=== PATIENT | male | born 1950 | race African-American/Black ===

== ENCOUNTER 2017-08-19 05:37 | Inpatient (IN) | payer MEDICARE, OTHER ==
[~2017-08-19] VITALS: Ht 175.3 cm; Wt 104.3 kg
[2017-08-19] MEDS ORDERED: LORAZEPAM 2MG/ML CPJ IV STA (06:01)
[2017-08-19 06:25] LABS: BASOPHILS % 0.3 % (0.0-2.0); EOSINOPHILS % 0.1 % (0.0-5.0); HEMATOCRIT. 43.7 % (42.0-52.0); HEMOGLOBIN. 14.3 g/dL (14.0-18.0); LYMPHOCYTES % 12.9 % (20.0-50.0); MEAN CORPUSCULAR HEMOGLOBIN 28.7 pg (28.0-32.0); MEAN CORPUSCULAR VOLUME 87.6 fL (80.0-94.0); MEAN PLATELET VOLUME 7.7 fl (7.4-10.4); MONOCYTES % 10.3 % (2.0-8.0); NEUTROPHILS % 76.4 % (40.0-76.0); PLATELET 183 x1000/uL (130-400); RED BLOOD CELL COUNT 4.99 mill/uL (4.7-6.1); RED CELL DISTRIBUTION WIDTH 14.8 % (11.6-14.6)
[2017-08-19 06:37] LABS: INR 1.1
[2017-08-19 06:43] LABS: CHLORIDE 89 mEq/L (98-107); ETHANOL BLOOD < 10 mg/dL
[2017-08-19 06:45] LABS: AMMONIA < 25 uMol/L (<32)
[2017-08-19 06:56] LABS: TROPONIN I 0.05 ng/mL (0.00-0.04)
[2017-08-19] MEDS ORDERED: SODIUM CHLORIDE 0.9% 1000ML BAG (SEPSIS BOLUS) IV ONE (07:00)
[2017-08-19] MEDS ORDERED: VANCOMYCIN 1 G PREMIX 200 ML IV ONE (07:00)
[2017-08-19] MEDS ORDERED: PIPERACILLIN/TAZ 3.375G PREMIX 50 ML IV ONE (07:00)
[2017-08-19 08:28] LABS: CLARITY URINE CLEAR (CLEAR); COLOR URINE YELLOW (YELLOW); KETONES URINE TRACE (NEGATIVE); LEUKOCYTE ESTERASE URINE NEGATIVE (NEGATIVE); NITRITE URINE NEGATIVE (NEGATIVE); OCCULT BLOOD URINE NEGATIVE (NEGATIVE); PROTEIN URINE 3+ (NEGATIVE); SPECIFIC GRAVITY URINE 1.024 (1.005-1.030); UROBILINOGEN URINE 0.2 E.U./dL (0.2-1.0)
[2017-08-19 08:50] LABS: *AMPHETAMINES SCREEN URINE NEGATIVE (NEGATIVE); *BARBITURATES SCREEN URINE NEGATIVE (NEGATIVE); *BENZODIAZEPINES SCREEN URINE NEGATIVE (NEGATIVE); *COCAINE SCREEN URINE NEGATIVE (NEGATIVE); CANNABINOID URINE SCREEN NEGATIVE (NEGATIVE); METHADONE URINE SCREEN NEGATIVE (NEGATIVE); OPIATES URINE SCREEN NEGATIVE (NEGATIVE); PHENCYCLIDINE URINE SCREEN NEGATIVE (NEGATIVE)
[2017-08-19] MEDS ORDERED: INSULIN LISPRO(HUMALOG)300 UNIT/3ML VIAL SUBCUT NR (12:00)
[2017-08-19] MEDS ORDERED: LORAZEPAM 2MG/ML CPJ IV NR (14:00)
[2017-08-19 17:39] VITALS: BP 162/88
[2017-08-19] MEDS ORDERED: MAGNESIUM HYDROXIDE 400MG/5ML 30ML UDC PO PRN (17:45)
[2017-08-19] MEDS ORDERED: DEXTROSE 50% WATER 50ML SYRINGE IV PRN (17:45)
[2017-08-19] MEDS ORDERED: LORAZEPAM 2MG/ML CPJ IV PRN (17:45)
[2017-08-19 18:00] VITALS: BP 162/88
[2017-08-19] MEDS ORDERED: NON FORMULARY PATIENT HOME MED EA PO SCH (18:00)
[2017-08-19] MEDS ORDERED: NON FORMULARY PATIENT HOME MED EA XX SCH ×2 (18:00)
[2017-08-19] MEDS ORDERED: PREGABALIN 50 MG CAPSULE PO SCH (18:30)
[2017-08-19] MEDS: CARBAMAZEPINE 200MG TABLET PO SCH (19:17)
[2017-08-19] MEDS: LOSARTAN POTASSIUM 100 MG TABLET PO SCH (19:19)
[2017-08-19] MEDS: INSULIN LISPRO (LOW DOSE) 100 UNITS/ML SUBCUT SCH ×2 (19:21→21:43)
[2017-08-19 20:00] VITALS: BP 143/71
[2017-08-19] MEDS ORDERED: PREGABALIN 25MG CAPSULE PO SCH (20:00)
[2017-08-19] MEDS ORDERED: MORPHINE SULFATE 30MG TABLET SR PO NR (20:00)
[2017-08-19] MEDS ORDERED: NALO25TA PO (20:28)
[2017-08-19] MEDS ORDERED: NABU-90 PO (20:28)
[2017-08-19] MEDS ORDERED: CLON0.1T PO (20:28)
[2017-08-19] MEDS ORDERED: GABA-290 PO (20:28)
[2017-08-19] MEDS ORDERED: CELE200C PO (20:28)
[2017-08-19] MEDS ORDERED: HYDR-4005 PO (20:28)
[2017-08-19] MEDS ORDERED: MORP30TA66 PO (20:28)
[2017-08-19] MEDS ORDERED: HYDR30TA PO (20:28)
[2017-08-19] MEDS ORDERED: PREG50CA PO (20:28)
[2017-08-19] MEDS ORDERED: TRAM50TA3 PO (20:28)
[2017-08-19] MEDS: INSULIN LISPRO 100 UNITS/ML SUBCUT SCH (21:00)
[2017-08-19] MEDS: LEVOFLOXACIN 500MG PREMIX 100 ML IV SCH (21:38)
[2017-08-19] MEDS: CLONIDINE 0.1MG TABLET PO SCH (21:41)
[2017-08-19] MEDS: BLOOD SUGAR DIAGNOSTIC STRIP TEST SCH (21:41)
[2017-08-19] MEDS: ENOXAPARIN 30MG/0.3ML SYR SUBCUT SCH (21:42)
[2017-08-20] VITALS: BP 169/82
[2017-08-20 04:00] VITALS: BP 134/67
[2017-08-20] MEDS: BLOOD SUGAR DIAGNOSTIC STRIP TEST SCH ×4 (06:40→21:45)
[2017-08-20 06:59] LABS: BASOPHILS % 0.5 % (0.0-2.0); EOSINOPHILS % 2.9 % (0.0-5.0); HEMATOCRIT. 38.1 % (42.0-52.0); HEMOGLOBIN. 12.6 g/dL (14.0-18.0); LYMPHOCYTES % 19.7 % (20.0-50.0); MEAN CORPUSCULAR HEMOGLOBIN 28.5 pg (28.0-32.0); MEAN CORPUSCULAR VOLUME 86.1 fL (80.0-94.0); MEAN PLATELET VOLUME 7.9 fl (7.4-10.4); MONOCYTES % 12.7 % (2.0-8.0); NEUTROPHILS % 64.2 % (40.0-76.0); PLATELET 154 x1000/uL (130-400); RED BLOOD CELL COUNT 4.43 mill/uL (4.7-6.1); RED CELL DISTRIBUTION WIDTH 14.6 % (11.6-14.6)
[2017-08-20 07:24] LABS: CHLORIDE 100 mEq/L (98-107)
[2017-08-20] MEDS: INSULIN LISPRO 100 UNITS/ML SUBCUT SCH (07:49)
[2017-08-20 08:07] VITALS: BP 144/70
[2017-08-20] MEDS: TIZANIDINE HCL 4MG TABLET PO SCH ×2 (09:00→09:40)
[2017-08-20] MEDS: CARBAMAZEPINE 200MG TABLET PO SCH ×2 (09:39→19:50)
[2017-08-20] MEDS: LOSARTAN POTASSIUM 100 MG TABLET PO SCH (09:40)
[2017-08-20] MEDS: CELECOXIB 200MG CAPSULE PO SCH (09:40)
[2017-08-20] MEDS: COLCHICINE 0.6MG TABLET PO SCH (09:40)
[2017-08-20] MEDS: ENOXAPARIN 30MG/0.3ML SYR SUBCUT SCH ×2 (09:40→20:44)
[2017-08-20] MEDS: INSULIN LISPRO (LOW DOSE) 100 UNITS/ML SUBCUT SCH ×4 (09:42→22:17)
[2017-08-20 11:43] VITALS: BP 131/76
[2017-08-20] MEDS ORDERED: CLON0.5T4 PO (13:12)
[2017-08-20] MEDS ORDERED: CARB300C6 PO (13:12)
[2017-08-20] MEDS ORDERED: ZET10 PO (13:12)
[2017-08-20] MEDS ORDERED: DIPH25CA83 PO (13:12)
[2017-08-20] MEDS ORDERED: ASPI-1159 PO (13:12)
[2017-08-20] MEDS ORDERED: PSEU60TA23 PO (13:12)
[2017-08-20] MEDS: GABAPENTIN 400MG CAPSULE PO SCH ×2 (13:47→20:43)
[2017-08-20 14:20] LABS: TROPONIN I 0.03 ng/mL (0.00-0.04)
[2017-08-20 15:46] VITALS: BP 146/92
[2017-08-20 20:00] VITALS: BP 151/84
[2017-08-20] MEDS: CLONIDINE 0.1MG TABLET PO SCH (20:43)
[2017-08-20] MEDS: LEVOFLOXACIN 500MG PREMIX 100 ML IV SCH (20:43)
[2017-08-20] MEDS: CLONIDINE 0.1MG TABLET PO PRN (23:53)
[2017-08-21] VITALS: BP 174/92
[2017-08-21 04:00] VITALS: BP 173/93
[2017-08-21] MEDS: GABAPENTIN 400MG CAPSULE PO SCH ×3 (05:23→21:24)
[2017-08-21] MEDS: CLONIDINE 0.1MG TABLET PO PRN (05:23)
[2017-08-21] MEDS: BLOOD SUGAR DIAGNOSTIC STRIP TEST SCH ×4 (06:40→21:22)
[2017-08-21 07:58] LABS: CHLORIDE 97 mEq/L (98-107)
[2017-08-21] MEDS: LOSARTAN POTASSIUM 100 MG TABLET PO SCH (09:11)
[2017-08-21] MEDS: COLCHICINE 0.6MG TABLET PO SCH (09:11)
[2017-08-21] MEDS: ENOXAPARIN 30MG/0.3ML SYR SUBCUT SCH ×2 (09:11→21:24)
[2017-08-21] MEDS: CARBAMAZEPINE 200MG TABLET PO SCH ×2 (09:11→18:28)
[2017-08-21] MEDS: TIZANIDINE HCL 4MG TABLET PO SCH (09:11)
[2017-08-21] MEDS: CELECOXIB 200MG CAPSULE PO SCH (09:11)
[2017-08-21] MEDS: INSULIN LISPRO 100 UNITS/ML SUBCUT SCH ×4 (09:12→22:01)
[2017-08-21 12:00] VITALS: BP 124/63
[2017-08-21 16:00] VITALS: BP 156/81
[2017-08-21 20:00] VITALS: BP 127/97
[2017-08-21] MEDS: LEVOFLOXACIN 500MG PREMIX 100 ML IV SCH (21:22)
[2017-08-21] MEDS: CLONIDINE 0.1MG TABLET PO SCH (21:23)
[2017-08-21] MEDS: LORAZEPAM 1MG TABLET PO PRN (21:24)
[2017-08-22] VITALS: BP 130/57
[2017-08-22 04:00] VITALS: BP 140/64
[2017-08-22] MEDS: GABAPENTIN 400MG CAPSULE PO SCH ×3 (06:37→22:04)
[2017-08-22] MEDS: BLOOD SUGAR DIAGNOSTIC STRIP TEST SCH ×4 (06:37→21:00)
[2017-08-22 08:15] VITALS: BP 163/90
[2017-08-22] MEDS: CELECOXIB 200MG CAPSULE PO SCH (08:49)
[2017-08-22] MEDS: LOSARTAN POTASSIUM 100 MG TABLET PO SCH (08:50)
[2017-08-22] MEDS: COLCHICINE 0.6MG TABLET PO SCH (08:50)
[2017-08-22] MEDS: CARBAMAZEPINE 200MG TABLET PO SCH ×2 (08:50→17:49)
[2017-08-22] MEDS: ENOXAPARIN 30MG/0.3ML SYR SUBCUT SCH ×2 (08:50→22:04)
[2017-08-22] MEDS: TIZANIDINE HCL 4MG TABLET PO SCH (08:50)
[2017-08-22] MEDS: CLONIDINE 0.1MG TABLET PO PRN (08:50)
[2017-08-22] MEDS: INSULIN LISPRO 100 UNITS/ML SUBCUT SCH ×4 (08:59→22:29)
[2017-08-22 12:20] VITALS: BP 143/75
[2017-08-22] MEDS: LORAZEPAM 1MG TABLET PO PRN ×2 (13:24→22:04)
[2017-08-22 17:11] VITALS: BP 159/85
[2017-08-22 20:00] VITALS: BP 167/82
[2017-08-22] MEDS: LEVOFLOXACIN 250MG TABLET PO SCH (22:03)
[2017-08-22] MEDS: CLONIDINE 0.1MG TABLET PO SCH (22:03)
[2017-08-23] VITALS: BP 126/73
[2017-08-23 04:00] VITALS: BP 171/83
[2017-08-23] MEDS: BLOOD SUGAR DIAGNOSTIC STRIP TEST SCH ×4 (05:49→21:36)
[2017-08-23] MEDS: GABAPENTIN 400MG CAPSULE PO SCH ×3 (05:51→21:35)
[2017-08-23] MEDS: CLONIDINE 0.1MG TABLET PO PRN ×2 (05:52→17:03)
[2017-08-23 08:00] VITALS: BP 141/82
[2017-08-23] MEDS ORDERED: TIZANIDINE HCL 4MG TABLET PO SCH ×2 (09:00→21:00)
[2017-08-23] MEDS: ENOXAPARIN 30MG/0.3ML SYR SUBCUT SCH ×2 (09:06→21:36)
[2017-08-23] MEDS: LOSARTAN POTASSIUM 100 MG TABLET PO SCH (09:07)
[2017-08-23] MEDS: COLCHICINE 0.6MG TABLET PO SCH (09:07)
[2017-08-23] MEDS: INSULIN LISPRO 100 UNITS/ML SUBCUT SCH ×4 (09:07→21:45)
[2017-08-23] MEDS: CELECOXIB 200MG CAPSULE PO SCH (09:07)
[2017-08-23] MEDS: TIZANIDINE HCL 4MG TABLET PO SCH ×2 (09:07→17:03)
[2017-08-23] MEDS: LORAZEPAM 1MG TABLET PO PRN ×2 (09:07→21:35)
[2017-08-23] MEDS: CARBAMAZEPINE 200MG TABLET PO SCH ×2 (09:07→17:03)
[2017-08-23 12:00] VITALS: BP 144/80
[2017-08-23 16:00] VITALS: BP 164/93
[2017-08-23 20:24] VITALS: BP 158/90
[2017-08-23] MEDS: LEVOFLOXACIN 250MG TABLET PO SCH (21:35)
[2017-08-23] MEDS: CLONIDINE 0.1MG TABLET PO SCH (21:36)
[2017-08-24] VITALS (7 sets, daily range): BP systolic 144–168; BP diastolic 69–91
[2017-08-24] MEDS: BLOOD SUGAR DIAGNOSTIC STRIP TEST SCH ×3 (05:37→17:26)
[2017-08-24] MEDS: GABAPENTIN 400MG CAPSULE PO SCH ×2 (05:37→17:26)
[2017-08-24] MEDS: LOSARTAN POTASSIUM 100 MG TABLET PO SCH (08:48)
[2017-08-24] MEDS: CARBAMAZEPINE 200MG TABLET PO SCH ×2 (08:48→17:26)
[2017-08-24] MEDS: COLCHICINE 0.6MG TABLET PO SCH (08:48)
[2017-08-24] MEDS: CELECOXIB 200MG CAPSULE PO SCH (08:49)
[2017-08-24] MEDS: ENOXAPARIN 30MG/0.3ML SYR SUBCUT SCH (08:49)
[2017-08-24] MEDS: INSULIN LISPRO 100 UNITS/ML SUBCUT SCH ×3 (08:55→18:19)
[2017-08-24] MEDS ORDERED: TIZANIDINE HCL 4MG TABLET PO SCH (09:00)
[2017-08-24] MEDS: LORAZEPAM 1MG TABLET PO PRN (17:35)
== END 2017-08-24 20:40 | disposition home or self-care (01) | DRG 871 ==
LOC: ER 05:37 → 7WST 07:26 → ENRESERV 09:25 → CANRESERV 09:25 → ENRESERV 11:20
PROVIDERS: ADMIT Specialist; ATTEND Specialist
DX: A41.9 Sepsis, unspecified organism (principal); J18.9 Pneumonia, unspecified organism; N17.9 Acute kidney failure, unspecified; E11.22 Type 2 diabetes mellitus with diabetic chronic kidney disease; E11.65 Type 2 diabetes mellitus with hyperglycemia; F11.20 Opioid dependence, uncomplicated; E87.1 Hypo-osmolality and hyponatremia; E78.00 Pure hypercholesterolemia, unspecified; G40.909 Epilepsy, unspecified, not intractable, without status epilepticus; G89.4 Chronic pain syndrome; I12.9 Hypertensive chronic kidney disease with stage 1 through stage 4 chronic kidney disease, or unspecified chronic kidney disease; Z96.41 Presence of insulin pump (external) (internal); F41.9 Anxiety disorder, unspecified; M54.5 Low back pain; N18.9 Chronic kidney disease, unspecified; Z95.0 Presence of cardiac pacemaker; Z79.4 Long term (current) use of insulin; Z87.891 Personal history of nicotine dependence; Z79.899 Other long term (current) drug therapy
CPT/HCPCS: 36415; 70450; 71045; 71047; 80048; 80053; 80061; 80305; 80307; 80329; 81003; 82140; 82962; 83036; 83605; 83880; 84443; 84484; 85025; 85610; 87040; 87070; 87086; 87116; 93005; 96365; 96367; 96372; 96375; 96376; 99291; G0482; J1650; J1815; J1956; J2060; J2543; J3370; J7030; J7050

== ENCOUNTER 2017-12-10 10:57 | Emergency (ER) | payer OTHER, MEDICARE ==
[~2017-12-10] VITALS: Ht 175.3 cm; Wt 90.0 kg
[~2017-12-10 10:57] MED LIST: ALBUTEROL 90 MG INH; ASPI-1159 PO; CELE200C PO; CLON0.1T PO; CLON0.5T12 PO; CYAN10009 IM; DIPH25CA83 PO; ESOM40CA MT; FLUT15.88 BOTHNSTRLS; GABA-290 PO; HYDR30TA PO; LOSA100T14 MT; NALO25TA PO; PSEU60TA23 PO; ZET10 PO
[2017-12-10] MEDS ORDERED: SODIUM CHLORIDE 0.9% 1,000 ML IV ONE (12:00)
[2017-12-10 12:03] LABS: BASOPHILS % 0.4 % (0.0-2.0); EOSINOPHILS % 1.4 % (0.0-5.0); HEMATOCRIT. 25.2 % (42.0-52.0); HEMOGLOBIN. 8.4 g/dL (14.0-18.0); LYMPHOCYTES % 11.9 % (20.0-50.0); MEAN CORPUSCULAR HEMOGLOBIN 29.2 pg (28.0-32.0); MEAN CORPUSCULAR VOLUME 87.2 fL (80.0-94.0); MEAN PLATELET VOLUME 7.2 fl (7.4-10.4); MONOCYTES % 8.4 % (2.0-8.0); NEUTROPHILS % 77.9 % (40.0-76.0); PLATELET 228 x1000/uL (130-400); RED BLOOD CELL COUNT 2.88 mill/uL (4.7-6.1); RED CELL DISTRIBUTION WIDTH 15.2 % (11.6-14.6)
[2017-12-10 12:08] LABS: CHLORIDE 100 mEq/L (98-107)
[2017-12-10 13:03] LABS: AMMONIA 21 uMol/L (<32)
[2017-12-10 14:59] LABS: CLARITY URINE CLOUDY (CLEAR); COLOR URINE RED (YELLOW); KETONES URINE TRACE (NEGATIVE); LEUKOCYTE ESTERASE URINE 1+ (NEGATIVE); NITRITE URINE NEGATIVE (NEGATIVE); OCCULT BLOOD URINE 3+ (NEGATIVE); PROTEIN URINE 2+ (NEGATIVE); SPECIFIC GRAVITY URINE 1.009 (1.005-1.030)
[2017-12-10 15:16] LABS: CANNABINOID URINE SCREEN NEGATIVE (NEGATIVE)
[2017-12-10 15:17] LABS: *BARBITURATES SCREEN URINE NEGATIVE (NEGATIVE); *COCAINE SCREEN URINE NEGATIVE (NEGATIVE); METHADONE URINE SCREEN NEGATIVE (NEGATIVE); OPIATES URINE SCREEN PRESUMTIVE POSITIVE (NEGATIVE); PHENCYCLIDINE URINE SCREEN NEGATIVE (NEGATIVE)
[2017-12-10 15:18] LABS: *AMPHETAMINES SCREEN URINE NEGATIVE (NEGATIVE); *BENZODIAZEPINES SCREEN URINE NEGATIVE (NEGATIVE)
[2017-12-10] MEDS ORDERED: LORAZEPAM 2MG/ML CPJ IV ONE (16:45)
[2017-12-10 19:19] VITALS: BP 149/74
== END 2017-12-10 19:50 | disposition home or self-care (01) ==
LOC: ER 11:18 → CANRESERV 19:42 → ENRESERV 19:42 → ER 19:50 → CANBEDREQ 19:51
DX: N17.9 Acute kidney failure, unspecified (principal); E86.0 Dehydration; R55 Syncope and collapse; R53.1 Weakness; R11.0 Nausea; R00.0 Tachycardia, unspecified; E11.9 Type 2 diabetes mellitus without complications; I10 Essential (primary) hypertension; E78.00 Pure hypercholesterolemia, unspecified
CPT/HCPCS: 36415; 71045; 80053; 80305; 81003; 82140; 83605; 83880; 84484; 85025; 87040; 93005; 96361; 96374; 99285; J2060; J7030; Z7610; A4315

== ENCOUNTER 2017-12-24 10:32 | Inpatient (IN) | payer OTHER, MEDICARE ==
[~2017-12-24] VITALS: Ht 175.3 cm; Wt 93.2 kg
[~2017-12-24 10:32] MED LIST changes: -ESOM40CA MT; +ESOM40CA PO; -LOSA100T14 MT; +LOSA100T14 PO
[2017-12-24] MEDS ORDERED: SODIUM CHLORIDE 0.9% 1,000 ML IV ONE (10:49)
[2017-12-24 11:10] LABS: BG BASE EXCESS -6.5 mmol/L (-2.0-2.0); BG CARBOXYHEMOGLOBIN 0.5 % (0.5-1.5); BG DEOXYHEMOGLOBIN 3.7 % (0.0-5.0); BG HCO3 ACT 17.3 mmol/L (22.0-26.0); BG METHEMOGLOBIN 0.4 % (0.0-1.5); BG OXYGEN SATURATION 96.3 % (92.0-98.5); BG OXYHEMOGLOBIN 95.4 % (94.0-97.0); BG PCO2 27.5 mmHg (35.0-45.0); BG PH 7.416 (7.350-7.450); BG PO2 90.9 mmHg (75.0-100.0); BG SAMPLE SITE RIGHT RADIAL; BG TOTAL HEMOGLOBIN 7.1 g/dL (12.0-18.0); BG VENT MODE ROOM AIR; HEMOGLOBIN. 7.1 g/dL (14.0-18.0); MEAN CORPUSCULAR HEMOGLOBIN 28.7 pg (28.0-32.0); MEAN CORPUSCULAR VOLUME 88.6 fL (80.0-94.0); MEAN PLATELET VOLUME 8.5 fl (7.4-10.4); PLATELET 153 x1000/uL (130-400); RED BLOOD CELL COUNT 2.48 mill/uL (4.7-6.1); RED CELL DISTRIBUTION WIDTH 17.3 % (11.6-14.6)
[2017-12-24 11:17] LABS: CHLORIDE 93 mEq/L (98-107); INR 1.1; PROTHROMBIN TIME 10.9 sec (9.4-11.6)
[2017-12-24 11:25] LABS: ETHANOL BLOOD < 10 mg/dL
[2017-12-24 11:26] LABS: CREATINE KINASE 339 IU/L (39-308)
[2017-12-24 11:28] LABS: BETA HYDROXYBUTYRATE 0.1 mMol/L (0.0-0.3)
[2017-12-24 11:29] LABS: AMMONIA 23 uMol/L (<32)
[2017-12-24 11:30] LABS: CARBAMAZEPINE < 0.5 ug/mL (4-12); PHENOBARBITAL < 2.1 ug/mL (15.0-40.0); VALPROIC ACID < 3.0 ug/mL (50-100)
[2017-12-24 11:52] LABS: PLATELET ESTIMATE NORMAL
[2017-12-24] MEDS ORDERED: PIPERACILLIN/TAZ 3.375G PREMIX 50 ML IV ONE (12:30)
[2017-12-24] MEDS ORDERED: INSULIN REGULAR (HUMULIN R) 300UNITS/3ML SUBCUT ONE (12:30)
[2017-12-24 13:03] LABS: CLARITY URINE CLOUDY (CLEAR); COLOR URINE DARK YELLOW (YELLOW); KETONES URINE NEGATIVE (NEGATIVE); LEUKOCYTE ESTERASE URINE 2+ (NEGATIVE); NITRITE URINE NEGATIVE (NEGATIVE); OCCULT BLOOD URINE 2+ (NEGATIVE); PROTEIN URINE 2+ (NEGATIVE); SPECIFIC GRAVITY URINE 1.011 (1.005-1.030); UROBILINOGEN URINE 0.2 E.U./dL (0.2-1.0)
[2017-12-24 13:33] LABS: *AMPHETAMINES SCREEN URINE NEGATIVE (NEGATIVE); *BARBITURATES SCREEN URINE NEGATIVE (NEGATIVE)
[2017-12-24 13:34] LABS: *BENZODIAZEPINES SCREEN URINE NEGATIVE (NEGATIVE); *COCAINE SCREEN URINE NEGATIVE (NEGATIVE); CANNABINOID URINE SCREEN NEGATIVE (NEGATIVE); METHADONE URINE SCREEN NEGATIVE (NEGATIVE); OPIATES URINE SCREEN NEGATIVE (NEGATIVE); PHENCYCLIDINE URINE SCREEN NEGATIVE (NEGATIVE)
[2017-12-24 16:00] VITALS: BP 138/69
[2017-12-24] MEDS ORDERED: ONDANSETRON 4MG ODT PO PRN (17:15)
[2017-12-24] MEDS ORDERED: ALBUTEROL (0.083%) 2.5MG/3ML NEB INH PRN (17:15)
[2017-12-24 17:38] VITALS: BP 138/69
[2017-12-24] MEDS ORDERED: ACETAMINOPHEN 325MG TABLET PO PRN (18:15)
[2017-12-24 20:00] VITALS: BP 122/62
[2017-12-24] MEDS: OXYCODONE HCL 20MG TABLET SR 12HR PO SCH (20:12)
[2017-12-24] MEDS: FLUTICASONE PROPIONATE 50MCG/SPRAY BOTTLE BOTHNSTRLS SCH (20:13)
[2017-12-24] MEDS: CLONAZEPAM 0.5MG TABLET PO SCH (20:13)
[2017-12-24] MEDS: LAMOTRIGINE 100MG TABLET PO SCH (20:13)
[2017-12-24] MEDS: SODIUM CHLORIDE 0.9% 1,000 ML IV SCH (20:16)
[2017-12-24] MEDS: LEVOFLOXACIN 500MG PREMIX 100 ML IV SCH (20:17)
[2017-12-24 20:20] LABS: TOTAL IRON BINDING CAPACITY 270 ug/dL (250-450)
[2017-12-24 20:28] LABS: T4 FREE 1.08 ng/dL (0.76-1.46)
[2017-12-24] MEDS ORDERED: DEXTROSE 50% WATER 50ML SYRINGE IV PRN (20:45)
[2017-12-24 20:48] LABS: FOLIC ACID (FOLATE) SERUM 8.7 ng/mL (>5.38)
[2017-12-24] MEDS ORDERED: INSULIN LISPRO 100 UNITS/ML SUBCUT SCH (21:00)
[2017-12-24] MEDS: BLOOD SUGAR DIAGNOSTIC STRIP TEST SCH (21:23)
[2017-12-24] MEDS ORDERED: GABAPENTIN 300MG CAPSULE PO SCH (22:15)
[2017-12-24] MEDS: INSULIN LISPRO 100 UNITS/ML SUBCUT SCH (22:23)
[2017-12-24] MEDS: DEMECLOCYCLINE HCL 300MG TABLET PO SCH (22:24)
[2017-12-24] MEDS: TIZANIDINE HCL 4MG TABLET PO SCH (22:43)
[2017-12-24] MEDS: GABAPENTIN 400MG CAPSULE PO SCH (22:44)
[2017-12-25] VITALS (7 sets, daily range): BP systolic 98–138; BP diastolic 54–76
[2017-12-25] MEDS: OXYCODONE HCL 5MG TABLET PO PRN ×2 (00:19→12:46)
[2017-12-25] MEDS ORDERED: EPOETIN ALFA 10000UNITS/ML VIAL SUBCUT NR (05:00)
[2017-12-25] MEDS: IRON SUCROSE COMPLEX 100 MG/5 ML ML IV SCH (05:14)
[2017-12-25] MEDS: DEMECLOCYCLINE HCL 300MG TABLET PO SCH ×3 (05:14→22:04)
[2017-12-25] MEDS: GABAPENTIN 400MG CAPSULE PO SCH ×3 (05:14→22:10)
[2017-12-25] MEDS: BLOOD SUGAR DIAGNOSTIC STRIP TEST SCH ×4 (05:48→21:00)
[2017-12-25 06:04] LABS: BASOPHILS % 0.5 % (0.0-2.0); EOSINOPHILS % 1.4 % (0.0-5.0); LYMPHOCYTES % 8.4 % (20.0-50.0); MEAN CORPUSCULAR VOLUME 87.3 fL (80.0-94.0); MEAN PLATELET VOLUME 8.1 fl (7.4-10.4); MONOCYTES % 11.3 % (2.0-8.0); NEUTROPHILS % 78.4 % (40.0-76.0); PLATELET 112 x1000/uL (130-400); RED CELL DISTRIBUTION WIDTH 16.8 % (11.6-14.6)
[2017-12-25 06:24] LABS: CHLORIDE 94 mEq/L (98-107)
[2017-12-25 06:28] LABS: PHOSPHORUS 2.3 mg/dL (2.5-4.9)
[2017-12-25 06:37] LABS: HEMATOCRIT. 17.5 % (42.0-52.0); HEMOGLOBIN. 5.8 g/dL (14.0-18.0)
[2017-12-25 06:38] LABS: TOTAL IRON BINDING CAPACITY 214 ug/dL (250-450)
[2017-12-25 06:39] LABS: LDL CHOLESTEROL 51 mg/dL (5-100); PHOSPHORUS 2.3 mg/dL (2.5-4.9)
[2017-12-25 06:42] LABS: HDL CHOLESTEROL 42 mg/dL (40-59)
[2017-12-25 06:52] LABS: VITAMIN B12 SERUM 699 pg/mL (211-911)
[2017-12-25] MEDS: SODIUM CHLORIDE 0.9% 1,000 ML IV SCH ×2 (07:20→22:10)
[2017-12-25] MEDS: PANTOPRAZOLE SODIUM 40 MG/VIAL IV SCH (08:30)
[2017-12-25] MEDS: LAMOTRIGINE 100MG TABLET PO SCH ×2 (08:31→22:04)
[2017-12-25] MEDS: EZETIMIBE 10MG TABLET PO SCH (08:31)
[2017-12-25] MEDS: OXYCODONE HCL 20MG TABLET SR 12HR PO SCH ×2 (08:31→22:05)
[2017-12-25] MEDS: INSULIN LISPRO 100 UNITS/ML SUBCUT SCH ×6 (08:32→21:00)
[2017-12-25] MEDS ORDERED: LEVOFLOXACIN 500MG PREMIX 100 ML IV SCH (12:45)
[2017-12-25] MEDS ORDERED: SODIUM PHOS,M-BASIC-D-BASIC 20 MM in DEXT 5% WATER 243.3333 ML IV SCH (14:00)
[2017-12-25] MEDS: FLUTICASONE PROPIONATE 50MCG/SPRAY BOTTLE BOTHNSTRLS SCH (21:00)
[2017-12-25] MEDS: CLONAZEPAM 0.5MG TABLET PO SCH (22:04)
[2017-12-25] MEDS: TIZANIDINE HCL 4MG TABLET PO SCH (22:06)
[2017-12-26] VITALS: BP 133/71
[2017-12-26 00:45] LABS: CLARITY URINE CLEAR (CLEAR); COLOR URINE YELLOW (YELLOW); KETONES URINE NEGATIVE (NEGATIVE); LEUKOCYTE ESTERASE URINE NEGATIVE (NEGATIVE); NITRITE URINE NEGATIVE (NEGATIVE); OCCULT BLOOD URINE 1+ (NEGATIVE); PROTEIN URINE 1+ (NEGATIVE); SPECIFIC GRAVITY URINE 1.006 (1.005-1.030); UROBILINOGEN URINE 0.2 E.U./dL (0.2-1.0)
[2017-12-26 04:00] VITALS: BP 134/68
[2017-12-26] MEDS: DIPHENHYDRAMINE 25MG CAPSULE PO PRN ×3 (04:50→21:45)
[2017-12-26] MEDS: IRON SUCROSE COMPLEX 100 MG/5 ML ML IV SCH (05:56)
[2017-12-26] MEDS: GABAPENTIN 400MG CAPSULE PO SCH ×3 (05:56→21:45)
[2017-12-26] MEDS: DEMECLOCYCLINE HCL 300MG TABLET PO SCH ×3 (05:56→21:45)
[2017-12-26] MEDS: OXYCODONE HCL 5MG TABLET PO PRN (05:58)
[2017-12-26] MEDS: BLOOD SUGAR DIAGNOSTIC STRIP TEST SCH ×4 (06:18→21:49)
[2017-12-26 08:00] VITALS: BP 128/60
[2017-12-26] MEDS: INSULIN LISPRO 100 UNITS/ML SUBCUT SCH ×7 (08:10→21:49)
[2017-12-26 10:30] LABS: BASOPHILS % 0.4 % (0.0-2.0); LYMPHOCYTES % 12.4 % (20.0-50.0); MEAN CORPUSCULAR HEMOGLOBIN 28.6 pg (28.0-32.0); MEAN CORPUSCULAR VOLUME 86.2 fL (80.0-94.0); MEAN PLATELET VOLUME 8.7 fl (7.4-10.4); MONOCYTES % 14.8 % (2.0-8.0); NEUTROPHILS % 69.4 % (40.0-76.0); PLATELET 160 x1000/uL (130-400); RED BLOOD CELL COUNT 2.08 mill/uL (4.7-6.1); RED CELL DISTRIBUTION WIDTH 16.6 % (11.6-14.6)
[2017-12-26 10:38] LABS: HEMATOCRIT. 17.9 % (42.0-52.0); HEMOGLOBIN. 5.9 g/dL (14.0-18.0)
[2017-12-26 10:57] LABS: PHOSPHORUS 3.4 mg/dL (2.5-4.9)
[2017-12-26] MEDS: OXYCODONE HCL 20MG TABLET SR 12HR PO SCH ×2 (11:08→21:28)
[2017-12-26] MEDS: PANTOPRAZOLE SODIUM 40 MG/VIAL IV SCH (11:08)
[2017-12-26] MEDS: FLUTICASONE PROPIONATE 50MCG/SPRAY BOTTLE BOTHNSTRLS SCH ×2 (11:10→21:29)
[2017-12-26] MEDS: EZETIMIBE 10MG TABLET PO SCH (11:11)
[2017-12-26] MEDS: SODIUM CHLORIDE 0.9% 1,000 ML IV SCH (11:11)
[2017-12-26] MEDS: LAMOTRIGINE 100MG TABLET PO SCH ×2 (11:11→21:28)
[2017-12-26 12:00] VITALS: BP 129/68
[2017-12-26 16:00] VITALS: BP 145/78
[2017-12-26] MEDS ORDERED: SORBITOL 70% SOLN 30ML PO NR ×2 (16:00→20:00)
[2017-12-26 20:00] VITALS: BP 127/55
[2017-12-26] MEDS ORDERED: TAMSULOSIN HCL 0.4MG SR CAPSULE PO SCH (21:00)
[2017-12-26] MEDS: TIZANIDINE HCL 4MG TABLET PO SCH (21:27)
[2017-12-26] MEDS: LEVOFLOXACIN 500MG PREMIX 100 ML IV SCH (21:27)
[2017-12-26] MEDS: CLONAZEPAM 0.5MG TABLET PO SCH (21:28)
[2017-12-26] MEDS ORDERED: SODIUM CHLORIDE 3% 250 ML IV ONE (23:00)
[2017-12-27] VITALS (16 sets, daily range): BP systolic 39–128; BP diastolic 31–82
[2017-12-27] MEDS ORDERED: ONDANSETRON HCL 4MG/2ML VIAL IV PRN (03:30)
[2017-12-27] MEDS: IRON SUCROSE COMPLEX 100 MG/5 ML ML IV SCH (04:07)
[2017-12-27 04:44] LABS: BG BASE EXCESS -12.8 mmol/L (-2.0-2.0); BG CARBOXYHEMOGLOBIN 0.8 % (0.5-1.5); BG DEOXYHEMOGLOBIN 0.3 % (0.0-5.0); BG FRACTION INSPIRED OXYGEN 100; BG HCO3 ACT 13.4 mmol/L (22.0-26.0); BG METHEMOGLOBIN 0.1 % (0.0-1.5); BG OXYGEN SATURATION 99.7 % (92.0-98.5); BG OXYHEMOGLOBIN 98.8 % (94.0-97.0); BG PCO2 32.1 mmHg (35.0-45.0); BG PH 7.239 (7.350-7.450); BG PO2 438.3 mmHg (75.0-100.0); BG SAMPLE SITE LEFT RADIAL; BG TOTAL HEMOGLOBIN 5.7 g/dL (12.0-18.0); BG VENT MODE MASK - NRB
[2017-12-27 05:52] LABS: CHLORIDE 93 mEq/L (98-107)
[2017-12-27 05:53] LABS: PARTIAL THROMBOPLASTIN TIME 37.2 sec (23.4-31.0); PROTHROMBIN TIME 10.7 sec (9.4-11.6)
[2017-12-27 05:58] LABS: PHOSPHORUS 6.6 mg/dL (2.5-4.9)
[2017-12-27 05:59] LABS: LDL CHOLESTEROL 85 mg/dL (5-100)
[2017-12-27 06:00] LABS: CREATINE KINASE 200 IU/L (39-308); HDL CHOLESTEROL 48 mg/dL (40-59)
[2017-12-27] MEDS ORDERED: SORBITOL 70% SOLN 30ML PO NR (06:00)
[2017-12-27] MEDS ORDERED: ONDANSETRON HCL 4MG/2ML VIAL IV SCH (06:11)
[2017-12-27] MEDS ORDERED: SODIUM BICARBONATE 8.4% 1 MEQ/ML 50ML SYR IV SCH (06:46)
[2017-12-27] MEDS ORDERED: INSULIN REGULAR (HUMULIN R) 300UNITS/3ML IV SCH (06:51)
[2017-12-27 07:24] LABS: BG BASE EXCESS -15.1 mmol/L (-2.0-2.0); BG CARBOXYHEMOGLOBIN 0.3 % (0.5-1.5); BG DEOXYHEMOGLOBIN 0.2 % (0.0-5.0); BG HCO3 ACT 14.2 mmol/L (22.0-26.0); BG METHEMOGLOBIN 0.3 % (0.0-1.5); BG OXYGEN SATURATION 99.8 % (92.0-98.5); BG OXYHEMOGLOBIN 99.2 % (94.0-97.0); BG PCO2 51.8 mmHg (35.0-45.0); BG PH 7.056 (7.350-7.450); BG PO2 254.1 mmHg (75.0-100.0); BG SAMPLE SITE RIGHT BRACHIAL; BG VENT MODE MASK - NRB
[2017-12-27] MEDS ORDERED: DEXTROSE 50% WATER 50ML SYRINGE IV PRN ×2 (08:30)
[2017-12-27] MEDS ORDERED: PROPOFOL 10MG/ML 100ML 100 ML IV PRN (08:45)
[2017-12-27 08:53] LABS: BASOPHILS % 0.2 % (0.0-2.0); EOSINOPHILS % 0.2 % (0.0-5.0); HEMATOCRIT. 21.9 % (42.0-52.0); LYMPHOCYTES % 7.7 % (20.0-50.0); MEAN CORPUSCULAR HEMOGLOBIN 28.6 pg (28.0-32.0); MEAN CORPUSCULAR VOLUME 93.5 fL (80.0-94.0); MEAN PLATELET VOLUME 9.7 fl (7.4-10.4); MONOCYTES % 10.5 % (2.0-8.0); NEUTROPHILS % 81.4 % (40.0-76.0); PLATELET 228 x1000/uL (130-400); RED BLOOD CELL COUNT 2.34 mill/uL (4.7-6.1); RED CELL DISTRIBUTION WIDTH 17.8 % (11.6-14.6)
[2017-12-27] MEDS: EZETIMIBE 10MG TABLET PO SCH (09:00)
[2017-12-27] MEDS ORDERED: INSULIN REGULAR (DRIP) 100 UNITS in SODIUM CHLORIDE 0.9% 100 ML IV SCH (09:00)
[2017-12-27] MEDS: LAMOTRIGINE 100MG TABLET PO SCH (09:00)
[2017-12-27] MEDS ORDERED: DIATR MEGLU/DIATRIZOATE SOLN 30ML PO SCH (09:00)
[2017-12-27] MEDS: OXYCODONE HCL 20MG TABLET SR 12HR PO SCH (09:00)
[2017-12-27] MEDS ORDERED: BLOOD SUGAR DIAGNOSTIC STRIP TEST SCH (09:00)
[2017-12-27] MEDS ORDERED: SODIUM BICARBONATE 100 MEQ in SODIUM CHLORIDE 0.45% 1,000 ML IV SCH (09:00)
[2017-12-27 09:04] LABS: HEMOGLOBIN. 6.7 g/dL (14.0-18.0)
[2017-12-27] MEDS ORDERED: LIDOCAINE HCL/PF 1% 10 MG/ML 5ML VIAL ONE (09:42)
[2017-12-27] MEDS ORDERED: PHENYLEPHRINE 20 MG in DEXT 5% WATER 248 ML IV PRN (10:00)
[2017-12-27] MEDS ORDERED: NOREPINEPHRINE 8 MG in DEXT 5% WATER 242 ML IV PRN (10:00)
[2017-12-27 10:33] LABS: BG CARBOXYHEMOGLOBIN 0.4 % (0.5-1.5); BG DEOXYHEMOGLOBIN 0.5 % (0.0-5.0); BG HCO3 ACT 9.2 mmol/L (22.0-26.0); BG METHEMOGLOBIN 0.4 % (0.0-1.5); BG OXYGEN SATURATION 99.5 % (92.0-98.5); BG OXYHEMOGLOBIN 98.7 % (94.0-97.0); BG PCO2 39.6 mmHg (35.0-45.0); BG PH 6.982 (7.350-7.450); BG PO2 211.7 mmHg (75.0-100.0); BG SAMPLE SITE RIGHT RADIAL; BG TIDAL VOLUME(mL) 600 mL; BG TOTAL HEMOGLOBIN 7.9 g/dL (12.0-18.0); BG VENT MODE VENT - A/C; BG VENT RATE 16 set
[2017-12-27] MEDS ORDERED: IPRATROPIUM/ALBUTEROL 0.5-3(2.5)MG/3ML NEB HHN SCH (12:00)
[2017-12-27 13:07] LABS: *CREATININE RANDOM URINE 44.6 mg/dL (Not Estab.); MICROALBUMIN RANDOM URINE 217.5 ug/mL (Not Estab.)
[2017-12-27] MEDS ORDERED: SODIUM BICARBONATE 7.5% 0.9 MEQ/ML 50ML SYR IV ONE (14:05)
[2017-12-27] MEDS ORDERED: EPINEPHRINE 0.1MG/ML (1:10,000) 10ML SYR ONE (14:05)
[2017-12-27] MEDS ORDERED: CALCIUM CHLORIDE 1GM/10ML SYR IV ONE (14:05)
[2017-12-27] MEDS ORDERED: SUCCINYLCHOLINE CHLORIDE 200MG/10ML VIAL IV ONE (14:54)
[2017-12-27] MEDS ORDERED: ETOMIDATE 2MG/ML 10ML VIAL IV ONE (14:54)
[2017-12-27] MEDS ORDERED: NORMAL SALINE 0.9% 10 ML SYR ONE (14:54)
== END 2017-12-27 10:26 | disposition expired | DRG 208 ==
LOC: ER 10:32 → 7WST 12:45 → EDBEDREQ 12:51 → ENRESERV 13:35 → MICUSO 12-27 06:20
PROVIDERS: ADMIT Internal Medicine; ATTEND Internal Medicine
PROC: 5A1935Z Respiratory Ventilation, Less than 24 Consecutive Hours (ICD-10-PCS; principal; 2017-12-27)
DX: J96.00 Acute respiratory failure, unspecified whether with hypoxia or hypercapnia (principal); G93.41 Metabolic encephalopathy; E87.1 Hypo-osmolality and hyponatremia; G40.919 Epilepsy, unspecified, intractable, without status epilepticus; E87.2 Acidosis; N39.0 Urinary tract infection, site not specified; E46 Unspecified protein-calorie malnutrition; F11.20 Opioid dependence, uncomplicated; M62.82 Rhabdomyolysis; N13.8 Other obstructive and reflux uropathy; N17.9 Acute kidney failure, unspecified; I46.9 Cardiac arrest, cause unspecified; R31.9 Hematuria, unspecified; D64.9 Anemia, unspecified; E11.65 Type 2 diabetes mellitus with hyperglycemia; D72.825 Bandemia; E11.40 Type 2 diabetes mellitus with diabetic neuropathy, unspecified; E61.1 Iron deficiency; E66.9 Obesity, unspecified; E78.00 Pure hypercholesterolemia, unspecified; E78.5 Hyperlipidemia, unspecified; G89.4 Chronic pain syndrome; I10 Essential (primary) hypertension; J45.909 Unspecified asthma, uncomplicated; N40.1 Benign prostatic hyperplasia with lower urinary tract symptoms; M19.90 Unspecified osteoarthritis, unspecified site; E11.42 Type 2 diabetes mellitus with diabetic polyneuropathy; R26.9 Unspecified abnormalities of gait and mobility; I95.9 Hypotension, unspecified; Z87.891 Personal history of nicotine dependence; Z95.0 Presence of cardiac pacemaker; Z83.3 Family history of diabetes mellitus; Z68.30 Body mass index [BMI] 30.0-30.9, adult; Z79.84 Long term (current) use of oral hypoglycemic drugs
CPT/HCPCS: 36415; 36600; 70450; 71045; 74018; 80053; 80061; 80069; 80076; 80156; 80165; 80184; 80185; 80305; 81003; 82010; 82043; 82140; 82270; 82375; 82550; 82553; 82570; 82607; 82728; 82746; 82805; 82962; 83036; 83540; 83550; 83605; 83735; 83880; 83935; 84100; 84132; 84133; 84153; 84156; 84300; 84439; 84443; 84481; 84484; 84550; 85025; 85044; 85610; 85651; 85730; 86677; 86850; 86900; 87040; 87077; 87086; 87186; 93005; 93970; 94640; 94660; 96361; 96365; 96372; 97162; 99285; A4216; C9113; G0482; J0330; J0885; J1815; J1956; J2405; J2704; J3490; J7030; J7050; J7060; Q0162; Q0163; A4315